=== PATIENT | female | born 1985 | race Two or more races ===

== ENCOUNTER 2016-04-22 05:43 | Emergency (ER) | payer OTHER ==
[~2016-04-22] VITALS: Ht 154.9 cm; Wt 52.0 kg
[2016-04-22 06:01] VITALS: Ht 154.9 cm; Wt 52.0 kg
--- NOTE | 2016-04-22 06:29 | ERD ---
ER Documentation Chief Complaint Date/Time DATE: 04/22/16 TIME: 06:26 Chief Complaint states possible spider bite to right wrist/ankle HPI 30 year old female comes in with right wrist "spider bite" she has had for 3 months, now on the right ankle, also comes in for vomiting and diarrhea x 2 days. No fever. She states it has been draining pus for several weeks now, this is her second evaluation. She states she had it drained previously when it first happened. ROS All systems reviewed and are negative except as per history of present illness. Medications Home Meds Active Scripts Hydrocodone/Acetaminophen ([place] 5-325 Tablet) 1 Each Tablet, 1 EACH PO Q6, #10 TAB Prov:KELLIE STERN PA-C 04/22/16 Bacitracin* (Bacitracin Zinc Oint*) 28.35 Gm Oint, 1 APPLIC TOP BID, #1 TUB APPLI TO Prov:KELLIE STERN PA-C 04/22/16 Sulfamethoxazole-Trimethoprim* (Bactrim* DS) 800-160 Mg Tab, 1 TAB PO BID for 7 Days, TAB Prov:KELLIE STERN PA-C 04/22/16 Cephalexin* (Keflex*) 500 Mg Capsule, 500 MG PO QID for 7 Days, CAP Prov:KELLIE STERN PA-C 04/22/16 Allergies Allergies: Coded Allergies: No Known Drug Allergies (Verified Allergy, Unknown, 04/22/16) Physical Exam Vitals Vital Signs Date Time Temp Pulse Resp B/P Pulse Ox O2 Delivery O2 Flow Rate FiO2 04/22/16 06:01 98.2 98 20 141/77 99 Physical Exam General: Well-developed, well-nourished. The patient appears in no acute distress. HEENT: Head is normocephalic, atraumatic. No scleral icterus. Neck: Supple. Nontender. Lungs: Clear to auscultation. Normal air movement. Heart: Regular rate and rhythm. S1 and S2 are normal. No murmurs, gallops, or rubs. Abdomen: Nondistended. Nontender, no tenderness to McBurney's point negative Truong sign. No peritoneal signs, guarding, hepatosplenomegaly Extremities: No clubbing or cyanosis. Moving extremities x 4. No weakness. Neurologic: Alert and oriented 3. No focal deficits. Normal speech and gait. Skin: cellulitis on right wrist, superficial, erythematous, 3 areas, one is 2 cm one is 1 cm and another 1 cm with pustular head no fluctuance, localized induration, no streaking. Radial pulses 2+ bilaterally. 2cm abscess on right medial ankle. Results 24 hrs Current Medications Medications (Trade) Dose Ordered Sig/Vanda Route PRN Reason Start Time Stop Time Status Last Admin Dose Admin Cephalexin (Keflex) 500 mg ONCE ONCE PO 04/22/16 06:30 04/22/16 06:31 DC 04/22/16 06:32 Trimethoprim/ Sulfamethoxazole (Bactrim (Ds)) 1 tab ONCE ONCE PO 04/22/16 06:30 04/22/16 06:31 DC 04/22/16 06:32 Bacitracin (Bacitracin Oint (Ud)) 1 applic ONCE ONCE TOP 04/22/16 06:30 04/22/16 06:31 DC 04/22/16 06:51 Lidocaine (Xylocaine 1% (Mdv) 20 ml) 20 ml ONCE ONCE SC 04/22/16 06:30 04/22/16 06:42 DC 04/22/16 06:32 Procedures/MDM ED course: Gentle pressure was applied, pulse was able to be drained, bacitracin was applied as well as a clean dressing. She was given Keflex and Bactrim. MDM: 30-year-old female comes in with multiple abscesses with cellulitis. Differentials include cellulitis, abscess, thrombophlebitis, insect bite, I do not see any limb threatening findings at this time. This patient is currently homeless, likely attributed to infection given the open wound from a benign bite. She will be treated with Keflex and Bactrim DS as well as topical bacitracin to be applied. Departure Diagnosis: Primary Impression: Abscess Condition: KELLIE Villafana PA-C Apr 22, 2016 06:29
[2016-04-22] MEDS ORDERED: BACITRACIN 0.9 GM OINT TOP ONE (06:30)
[2016-04-22] MEDS ORDERED: TRIMETHOPRIM/SULFAMETHOX (DS) TAB PO ONE (06:30)
[2016-04-22] MEDS ORDERED: LIDOCAINE 1% (MDV) 20 ML INJ SC ONE (06:30)
[2016-04-22] MEDS ORDERED: CEPHALEXIN 500 MG CAP PO ONE (06:30)
[2016-04-22] MEDS ORDERED: HYDR-906 PO (06:35)
[2016-04-22] MEDS ORDERED: BAC30OI TOP (06:35)
[2016-04-22] MEDS ORDERED: BACTDS PO (06:35)
[2016-04-22] MEDS ORDERED: CEPH-443 PO (06:35)
== END 2016-04-22 07:01 | disposition home or self-care (01) ==
LOC: FTE 05:43
DX: L02.413 Cutaneous abscess of right upper limb (principal); W57.XXXD Bitten or stung by nonvenomous insect and other nonvenomous arthropods, subsequent encounter
CPT/HCPCS: 99284

== ENCOUNTER 2017-02-06 12:15 | Inpatient (IN) | payer MEDICAID, OTHER ==
[~2017-02-06] VITALS: Ht 162.6 cm; Wt 61.5 kg
[~2017-02-06 12:15] MED LIST: BACI28.34 TOP; BACTDS PO; CEPH-443 PO; HYDR-906 PO
[2017-02-06 12:40] VITALS: Ht 162.6 cm; Wt 61.5 kg
[2017-02-06 12:41] VITALS: BP 129/85; PULSE 78
[2017-02-06 14:05] LABS: BASOPHILS % 0.4 % (0.0-2.0); EOSINOPHILS % 0.3 % (0.0-7.0); HEMATOCRIT 35.6 % (37.0-47.0); HEMOGLOBIN 11.8 g/dl (12.0-16.0); LYMPHOCYTES # 2.6 10^3/ul (0.8-2.9); MEAN CORPUSCULAR HGB CONC 33.1 g/dl (32.0-37.0); MEAN CORPUSCULAR VOLUME 87.5 fl (82.0-101.0); MEAN PLATELET VOLUME 11.6 fl (7.4-10.4); MONOCYTE # 0.6 10^3/ul (0.3-0.9); MONOCYTES % 5.6 % (0.0-11.0); NEUTROPHIL # 7.4 10^3/ul (1.6-7.5); NEUTROPHILS % 69.2 % (39.0-77.0); PLATELET COUNT 170 10^3/UL (140-415); RED BLOOD COUNT 4.07 10^6/ul (4.20-5.40); RED CELL DISTRIBUTION WIDTH 13.6 % (11.5-14.5); WHITE BLOOD COUNT 10.7 10^3/ul (4.8-10.8)
[2017-02-06 14:17] LABS: ADD UMIC YES; UR ASCORBIC ACID NEGATIVE (NEGATIVE); UR BACTERIA FEW /HPF (NONE SEEN); UR BILIRUBIN (Dip) NEGATIVE (NEGATIVE); UR BLOOD (Dip) 3+ mg/dL (NEGATIVE); UR CLARITY CLOUDY (CLEAR); UR COLOR AMBER (YELLOW); UR GLUCOSE (Dip) NEGATIVE (NEGATIVE); UR KETONES (Dip) NEGATIVE (NEGATIVE); UR LEUKOCYTE ESTERASE (Dip) TRACE Leu/ul (NEGATIVE); UR MUCUS MODERATE /HPF (NONE SEEN); UR NITRITE (Dip) NEGATIVE (NEGATIVE); UR NONSQUAMOUS EPITHELIAL CELL 1 /HPF (NONE SEEN); UR RBC > 182 /HPF (0-5); UR SPECIFIC GRAVITY (Dip) 1.021 (1.003-1.030); UR SQUAMOUS EPITHELIAL CELL FEW /HPF (FEW); UR TOTAL PROTEIN (Dip) 2+ mg/dl (NEGATIVE); UR UROBILINOGEN (Dip) 1+ mg/dL (NEGATIVE)
[2017-02-06 14:38] LABS: BARBITURATES Negative (NEGATIVE)
--- NOTE | 2017-02-06 14:43 | RADRPT ---
PROCEDURE: US OB biophysical profile. CLINICAL INDICATION: No care. Bleeding. TECHNIQUE: Multiple sonographic images of the pelvis were obtained. The images were reviewed on a PACS workstation. COMPARISON: None FINDINGS: There is a viable intrauterine gestation. There is a normal amount of amniotic fluid with an STELLA = 15.4 cm. Cardiac activity is present with 144 beats per minute. The placenta is anterior. No evidence of placenta previa or abruption. Biophysical profile: movement 2/2 tone 2/2. breathing 2/2 STELLA 2/2 Total 10/25 IMPRESSION: Normal biophysical profile. RPTAT:AAJJ Physician Shravan Date Time Electronically viewed and signed by Physician Shravan on 02/06/2017 14:42 /
--- NOTE | 2017-02-06 14:46 | RADRPT ---
PROCEDURE: US OB. CLINICAL INDICATION: No care. Evaluate size and dates TECHNIQUE: Multiple sonographic images of the pelvis were obtained. The images were reviewed on a PACS workstation. COMPARISON: Biophysical profile performed at the same time. FINDINGS: There is a single viable intrauterine gestation. Cardiac activity is present with 136 beats per min [place]. Measurements were made in order to determine age. The results are as follows: BPD =8.4 cm HC =30.8 cm AC =30.1 cm FL =6.4 cm. Estimated gestational age of approximately 33 weeks and 6 days. The estimated date of delivery is 03/21/2017. The EFW = 2276 g . Limited by positioning. Visualized structures are normal. The placenta is anterior. There is no evidence for an abruption or placenta previa. There is a normal amount of amniotic fluid with an STELLA = 15.4. IMPRESSION: Single viable intrauterine gestation of approximately 33 weeks and 6 days. RPTAT:AAJJ Physician Shravan Date Time Electronically viewed and signed by Physician Shravan on 02/06/2017 14:45 /
[2017-02-06 15:00] LABS: BENZODIAZEPINES Negative (NEGATIVE); CANNABINOIDS Negative (NEGATIVE); COCAINE Negative (NEGATIVE)
[2017-02-06] MEDS ORDERED: NIFEdipine 10 MG CAP PO ONE (15:00)
[2017-02-06] MEDS ORDERED: AMPICILLIN 2 GM/NS (PMX) 100 ML IV ONE (15:00)
[2017-02-06] MEDS ORDERED: BETAMET NA PHOS/AC(6 MG/ML) 5ML INJ IM SCH (15:00)
[2017-02-06 15:02] LABS: OPIATES Positive (NEGATIVE)
[2017-02-06] MEDS ORDERED: morphine 4 MG/ML VIAL IV PRN (16:30)
[2017-02-06] MEDS ORDERED: CITRIC ACID/SODIUM CITRATE 15 ML CUP ONE (16:48)
[2017-02-06] MEDS ORDERED: CITRIC ACID/SODIUM CITRATE 15 ML CUP PO PRN (17:00)
[2017-02-06] MEDS: LACTATED RINGER'S 1,000 ML IV SCH ×3 (17:01→17:41)
[2017-02-06] MEDS ORDERED: LACTATED RINGER'S 1,000 ML IV PRN (17:11)
[2017-02-06] MEDS ORDERED: CARBOPROST 250 MCG INJ IM PRN (17:30)
[2017-02-06] MEDS ORDERED: OXYTOCIN 30 UNITS/LR 500 ML IV SCH ×2 (17:30)
[2017-02-06] MEDS ORDERED: METHYLERGONOVINE 0.2 MG INJ IM PRN (17:30)
[2017-02-06] MEDS ORDERED: LIDOCAINE 1% (MPF) 30 ML INJ INJ PRN (17:30)
[2017-02-06] MEDS ORDERED: OXYTOCIN 30 UNITS/LR 500 ML IV PRN (17:30)
[2017-02-06] MEDS ORDERED: IBUPROFEN 600 MG TAB PO PRN (17:30)
[2017-02-06] MEDS ORDERED: MISOPROSTOL 200 MCG TAB PR PRN (17:30)
--- NOTE | 2017-02-06 17:30 | HP ---
Date/Time of Note Date/Time of Note DATE: 02/06/17 TIME: 17:28 OB - History Hx of Present Free Text/Dictation pt with no PNC and ho of drug abuse presents co of spotting and Ucx PMH non PSH non : 1 Para: 0 Care: None Ultrasounds: No ultrasounds Obstetrical Complications: Other Medical Complications: None Past Family/Social History * Past Medical, Surgical, Family and Obstetric Histories reviewed from chart. OB Admission Exam Vital Signs Vital Signs Vital Signs Date Time Temp Pulse Resp B/P Pulse Ox O2 Delivery O2 Flow Rate FiO2 02/06/17 12:41 98.4 78 129/85 Physical Exam HEENT: WNL Heart: Rhythm Normal Lungs: Clear Cervical Dilatation: 3cm Effacement: 75% Station: -1 Membranes: Intact Heart Rate: 140's Accelerations: Accelerations Present Last 72 hours Lab Results CBC & BMP 02/06/17 13:47 OB Assessment/Plan Reason for admission: labor Plan: Expectant Management Other plan: iup @ 33,6 based on US done today- pt with no care in the past PTL /-1 admit-BMS,ampicillin, procardia nicu consult and MFM consult if pt does not deliver admit labs MELISSA IBRAHIM MD Feb 06, 2017 17:30
[2017-02-06] MEDS ORDERED: FENTAnyl 2MCG/ML-ROPIV 0.2% 100 ML ONE (17:41)
[2017-02-06] MEDS ORDERED: FENTAnyl 2MCG/ML-ROPIV 0.2% 100 ML BAG EPI SCH (18:00)
[2017-02-06] MEDS ORDERED: ONDANSETRON 4 MG INJ IV PRN (18:00)
[2017-02-06] MEDS ORDERED: EPHEDrine SULFATE 50 MG/5 ML SYG IV PRN (18:00)
[2017-02-06] MEDS ORDERED: NALOXONE (0.4 MG/ML) INJ IV PRN (18:00)
[2017-02-06] MEDS: NIFEdipine 10 MG CAP PO SCH ×2 (18:00→21:56)
[2017-02-06] MEDS ORDERED: DIPHENHYDRAMINE 50 MG INJ IV PRN (18:00)
[2017-02-06 18:07] LABS: INR 0.91; PROTIME 12.2 Sec (12.2-14.2)
[2017-02-06 18:08] LABS: PARTIAL THROMBOPLASTIN TIME 24.9 Sec (25.0-35.0)
[2017-02-06] MEDS: AMPICILLIN 1 GM/NS (PMX) 50 ML IV SCH ×2 (19:00→21:56)
[2017-02-07] MEDS: LACTATED RINGER'S 1,000 ML IV SCH ×3 (00:01→20:37)
[2017-02-07] MEDS ORDERED: CEFAZOLIN 2 GM/50 ML (PMX) 50 ML IVPB ONE (01:30)
[2017-02-07] MEDS ORDERED: CEFAZOLIN 2 GM/50 ML (PMX) 50 ML IV SCH (01:30)
[2017-02-07] MEDS ORDERED: OXYTOCIN 10 UNIT INJ ONE (01:41)
[2017-02-07] MEDS ORDERED: ONDANSETRON 4 MG INJ ONE (01:41)
[2017-02-07] MEDS ORDERED: METOCLOPRAMIDE 10 MG INJ ONE (01:41)
[2017-02-07] MEDS ORDERED: morphine SULFATE/PF (10 MG/10 ML) INJ ONE (01:41)
[2017-02-07] MEDS ORDERED: OXYTOCIN 30 UNITS/LR 500 ML IV ONE (01:41)
[2017-02-07] MEDS ORDERED: EPHEDrine SULFATE 50 MG/5 ML SYG ONE (01:41)
[2017-02-07] MEDS ORDERED: MIDAZOLAM 1 MG/ML 2 ML INJ ONE (02:09)
[2017-02-07 02:48] LABS: CBV Base Excess -5.6 mmol/L; CBV COHb 0.6 %; CBV Oxygen Sat 34.7 mmHG; Fraction OxyHgb Cord Venous 33.8 %; MODE ROOM AIR; MetHgb Cord Venous 2.1 %; Sample Type Blood venous
[2017-02-07 02:50] LABS: AADO2 Cord Arterial 50.6 mmHg; Arterial Cord Blood pCO2 67.1 mmHG (25-50); CBA Base Excess -7.8 mmol/L; CBA Oxygen Sat 32.6 mmHG; CBA Total Hemglobin 12.7 g/dl; Cord Blood Arterial pO2 18.8 mmHG (15.0-45.0); Fraction OxyHgb Cord Arterial 31.7 %; MODE ROOM AIR; MetHgb Cord Arterial 2.1 %
[2017-02-07] MEDS ORDERED: OXYTOCIN 30 UNITS/LR 500 ML IV SCH (03:49)
[2017-02-07] MEDS ORDERED: DEXTROSE 5%-LR 1,000 ML IV SCH (03:49)
--- NOTE | 2017-02-07 03:49 | OPR ---
Operative Report Planned Procedure Free Text/Dictation 31 year-old, 1, with single intrauterine at 33 6/7 week base of yesterday's with no care, non reassuring heat rate and possible placental abruption Procedure date Feb 07, 2017 Procedure(s) Primary lower delivery Performed by see signature line Hand Cooper Helper Dr. Weber Anesthesiologist: YVETTE STERN MD Pre-procedure diagnosis Single intrauterine at 33 6/7 week base of yesterday's with no care, non reassuring heat rate and possible placental abruption Anesthesia Type: epidural Post-Procedure Post-procedure diagnosis Single intrauterine at 33 6/7 weeks with no care, non reassuring heat rate and placental abruption with couvelaire uterus Findings Live Baby [female], Apgars [7] and [9], weight [2270 gram], [cephalic] presentation [3]cord. Time of delivery: 02:01 Estimated Blood Loss: 500 - 600 mls Specimen(s) placenta Grafts/Implant(s) none Complication(s) none Pt Condition post procedure: stable Disposition: PACU Procedure Description INDICATION & HISTORY The patient is a 31 year-old, 1, with single intrauterine at 33 6/7 week base of yesterday's with no care, non reassuring heat rate and possible placental abruption. The risks of delivery including but not limited to bleeding, infection, injury to other organs (bowel , bladder, ureters, vessels, nerves), injury to the , blood transfusion, blood transfusion related infections, removal of uterus, risk of anesthesia, risks with future , repeat , adhesion/hernia formation discussed in detail with the patient. She voiced understanding and agreed with . She signed the informed consent. DESCRIPTION OF OPERATION: The patient was taken to the operating room, where she was identified and the procedure was verified. She received spinal anesthesia. The patient was placed in dorsal supine position with the left tilt. The heart rate was 124 per minute. The patient was then prepped and draped in the normal sterile fashion. The Pfannenstiel skin incision was made, and carried down to the fascia with the knife. The fascia was incised in the midline, and the fascial incision was carried laterally with the Llamas scissors. The superior portion of the fascial incision was then grasped with Waqar clamps, tented up and dissected off the underlying rectus muscle with sharp dissection. The lower portion of the fascial incision was then made in a similar fashion. The rectus muscle was and the peritoneum was entered. The peritoneal incision was then stretched and a bladder blade was inserted. Then, an incision was made in the lower uterine segment in a transverse fashion with the knife and extended bluntly. The was delivered atraumatically in cephalic presentation, with the above findings. The resuscitation team was present and the baby was handed to them. A cord blood sample was obtained for further evaluation. The placenta and membranes, which appeared normal were removed. The uterus was exteriorized and cleared of all clots and debris. As noted above there was a Couvelaire uterus. The uterus was then closed in a two layer fashion with 0 Vicryl. At the time of closure, hemostasis was noted. The gutters were irrigated. The peritoneum was reapproximated with 3-0 Vicryl. The muscle was reapproximated with 3-0 Vicryl. The fascia approximated with 0 Vicryl in a running fashion. The subcutaneous closed with 3/0 vicryl. The skin was closed with 4-0 Monocryl. All instrument, sponge, lap, and needle counts were correct x3. The patient tolerated the procedure well. She was transferred to the recovery room in stable condition. The patient received 2 g Ancef 30 minutes prior to surgery. REGINA STINSON Feb 07, 2017 03:49
[2017-02-07] MEDS ORDERED: MISOPROSTOL 200 MCG TAB PR PRN (04:00)
[2017-02-07] MEDS ORDERED: OXYTOCIN 30 UNITS/LR 500 ML IV PRN (04:00)
[2017-02-07] MEDS ORDERED: CARBOPROST 250 MCG INJ IM PRN (04:00)
[2017-02-07] MEDS ORDERED: METHYLERGONOVINE 0.2 MG INJ IM PRN (04:00)
[2017-02-07] MEDS ORDERED: LANOLIN 7 GM TUBE TOP PRN (04:00)
[2017-02-07] MEDS ORDERED: METHYLERGONOVINE 0.2 MG TAB PO PRN (04:00)
[2017-02-07 05:30] VITALS: BP 119/59; PULSE 88; RESP 18
[2017-02-07] MEDS: OXYCODONE/ACETAMINOPHEN (5/325) TAB PO SCH ×3 (05:45→20:00)
[2017-02-07] MEDS: IBUPROFEN 800 MG TAB PO SCH ×3 (05:45→22:00)
[2017-02-07 07:51] VITALS: BP 132/87; PULSE 70; RESP 14
[2017-02-07] MEDS ORDERED: NALBUPHINE HCL (10 MG/1 ML) INJ IV PRN (09:00)
[2017-02-07] MEDS ORDERED: NALOXONE (0.4 MG/ML) INJ IV PRN (09:00)
[2017-02-07] MEDS ORDERED: HYDROmorphONE 0.5 MG/0.5 ML SYG IV PRN ×2 (09:00)
[2017-02-07] MEDS ORDERED: DIPHENHYDRAMINE 50 MG INJ IV PRN (09:00)
[2017-02-07] MEDS ORDERED: ONDANSETRON 4 MG INJ IV PRN (09:00)
[2017-02-07] MEDS ORDERED: ZOLPIDEM 5 MG TAB PO PRN (09:00)
[2017-02-07] MEDS: KETOROLAC 30 MG INJ IV PRN ×3 (09:47→22:36)
[2017-02-07] MEDS: SENNA/DOCUSATE NA (8.6MG/50MG) TAB PO SCH ×2 (09:52→20:37)
[2017-02-07 13:09] VITALS: BP 120/67; PULSE 59; RESP 14
[2017-02-07 16:05] VITALS: BP 111/56; PULSE 70; RESP 18
[2017-02-07 19:58] VITALS: BP 103/60; PULSE 62; RESP 18
[2017-02-08] VITALS: BP 119/64; PULSE 52; RESP 18
[2017-02-08] MEDS: LACTATED RINGER'S 1,000 ML IV SCH ×2 (02:00→10:00)
[2017-02-08 04:00] VITALS: BP 118/80; PULSE 63; RESP 18
[2017-02-08] MEDS: OXYCODONE/ACETAMINOPHEN (5/325) TAB PO SCH ×3 (04:00→20:44)
[2017-02-08] MEDS: IBUPROFEN 800 MG TAB PO SCH ×3 (05:56→22:56)
[2017-02-08 08:00] VITALS: BP 135/82; PULSE 59; RESP 18
[2017-02-08] MEDS: OXYCODONE/ACETAMINOPHEN (5/325) TAB PO PRN ×2 (10:40→17:09)
[2017-02-08] MEDS: SENNA/DOCUSATE NA (8.6MG/50MG) TAB PO SCH ×2 (10:40→20:44)
--- NOTE | 2017-02-08 10:49 | PN ---
Date/Time of Note Date/Time of Note DATE: 02/08/17 TIME: 10:46 OB Subjective Subjective Subjective Status post , postoperative day #1 Patient passed flatus. Tolerated regular diet. Is not breast-feeding. Ambulated. Urinated. 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 Denies any IV drug use. Her U tox was positive for amphetamine. Baby currently NICU. OB Objective Objective Objective General appearance: Alert and oriented 4. Patient does not appear to be in any acute distress. Abdomen: Soft, fundus at the level about 2-3 cm below the umbilicus and firm. Incision: Clean dry and intact Extremities: No calf tenderness, no click no edema Lungs: Clear to auscultation bilaterally CV: RRR Breast: No evidence of engorgement or mastitis or tenderness Hematology - 72 Hrs Test 02/06/17 13:47 White Blood Count 10.710^3/ul (4.8-10.8) Red Blood Count 4.0710^6/ul (4.20-5.40) L Hemoglobin 11.8g/dl (12.0-16.0) L Hematocrit 35.6% (37.0-47.0) L Mean Corpuscular Volume 87.5fl (82.0-101.0) Mean Corpuscular Hemoglobin 29.0pg (29.0-33.0) Mean Corpuscular Hemoglobin Concent 33.1g/dl (32.0-37.0) Red Cell Distribution Width 13.6% (11.5-14.5) Platelet Count 01499^3/UL (140-415) Mean Platelet Volume 11.6fl (7.4-10.4) H Neutrophils % 69.2% (39.0-77.0) Lymphocytes % 24.0% (15.0-51.0) Monocytes % 5.6% (0.0-11.0) Eosinophils % 0.3% (0.0-7.0) Basophils % 0.4% (0.0-2.0) Nucleated Red Blood Cells % 0.0/100WBC (0.0-0.0) Neutrophils # 7.410^3/ul (1.6-7.5) Lymphocytes # 2.610^3/ul (0.8-2.9) Monocytes # 0.610^3/ul (0.3-0.9) Eosinophils # 0.010^3/ul (0.0-0.5) Basophils # 0.010^3/ul (0.0-0.1) Nucleated Red Blood Cells # 0.010^3/ul (0.0-0.0) OB Assessment/Plan Other Assessment: Postoperative day #1 Status post emergency section at 33 weeks and 6 days for nonreassuring heart tracing and placenta abruption No complication or postoperatively Doing well baby is in NICU received partial dose of steroid. 1 dose of steroid prior to C -section only, Mother denies any history of IV drug usage. Reports has been using heroin and methamphetamine by smoking, but denies using on a regular basis Cannot breast-feed due to drug usage and positive urine drug screen. Positive for methamphetamine Advised the patient to have a tight bra and cold compress Continue routine postop care CYN LEMA MD Feb 08, 2017 10:49
[2017-02-08 15:56] VITALS: BP_SYST 130; BP_SYST 135; BP_DIAS 80; PULSE 61; RESP 18
[2017-02-08 20:00] VITALS: BP 142/88; PULSE 74; RESP 18
[2017-02-09] MEDS: OXYCODONE/ACETAMINOPHEN (5/325) TAB PO PRN ×2 (01:44→15:11)
[2017-02-09] MEDS: OXYCODONE/ACETAMINOPHEN (5/325) TAB PO SCH ×5 (04:00→21:15)
[2017-02-09 04:45] VITALS: BP 130/63; PULSE 69; RESP 18
[2017-02-09] MEDS: IBUPROFEN 800 MG TAB PO SCH ×3 (06:06→22:18)
[2017-02-09 08:34] VITALS: BP 129/85; PULSE 59; RESP 18
[2017-02-09] MEDS: SENNA/DOCUSATE NA (8.6MG/50MG) TAB PO SCH ×2 (09:19→21:16)
--- NOTE | 2017-02-09 11:48 | PN ---
Date/Time of Note Date/Time of Note DATE: 02/09/17 TIME: 11:45 OB Subjective Subjective Subjective Post C section day 2 Doing fairly Well Afebrile Ambulatory Chest Clear Breasts are soft , Nipples are intact Abdomen is soft Fundus is firm Moderate amount of lochia Incision is clean ,No evidence of infection No calf tenderness Current Medications Medications (Trade) Dose Ordered Sig/Vanda Route PRN Reason Start Time Stop Time Status Last Admin Dose Admin Lactated Ringer's (Lr) 1,000 ml @ 125 mls/hr Q8H IV 02/06/17 14:48 02/07/17 05:40 DC 02/06/17 17:41 Nifedipine (Procardia) 20 mg ONCE ONCE PO 02/06/17 15:00 02/06/17 15:02 DC 02/06/17 16:08 Nifedipine (Procardia) 20 mg Q6 PO 02/06/17 18:00 02/06/17 22:55 DC 02/06/17 21:56 Betamethasone Acet/Betameth SodPhos 12 mg 12 mg Q24H IM 02/06/17 15:00 02/06/17 22:55 DC 02/06/17 16:15 Ampicillin 100 ml @ 100 mls/hr ONCE ONCE IV 02/06/17 15:00 02/06/17 22:55 DC 02/06/17 17:06 Ampicillin (Ampicillin 1 Gm/ NS (Pmx)) 50 ml @ 100 mls/hr Q4H IV 02/06/17 19:00 02/07/17 02:55 DC 02/06/17 21:56 Morphine Sulfate (morphine) 4 mg PRN PRN IV PAIN 02/06/17 16:30 02/07/17 05:40 DC 02/06/17 16:20 Citric Acid/ Sodium Citrate (Bicitra) 30 ml PRN PRN PO HEARTBURN 02/06/17 17:00 02/07/17 05:40 DC 02/06/17 17:02 Citric Acid/ Sodium Citrate 15 ml 15 ml STK-MED ONCE .ROUTE 02/06/17 16:48 02/06/17 16:49 DC Lactated Ringer's (Lr) 1,000 ml @ 125 mls/hr Q8H IV 02/06/17 17:09 02/07/17 05:40 DC 02/07/17 00:01 Lidocaine 30 ml 30 ml ONCE PRN INJ EPISIOTOMY/TEARING 02/06/17 17:30 02/07/17 05:40 DC Oxytocin/Lactated Ringer's 500 ml @ 125 mls/hr ONCE -MAY REPEAT X1 IV 02/06/17 17:30 02/07/17 05:40 DC Oxytocin/Lactated Ringer's 500 ml @ 125 mls/hr ONCE IV 02/06/17 17:30 02/07/17 05:40 DC 02/07/17 04:56 Ibuprofen 600 mg 600 mg ONCE PRN PO Mild Pain (Pain Score 1-3) 02/06/17 17:30 02/07/17 05:40 DC Lactated Ringer's 1,000 ml @ 2,000 mls/hr Q30M PRN IV PRE-EPIDURAL BOLUS 02/06/17 17:11 02/07/17 05:40 DC Oxytocin/Lactated Ringer's 500 ml @ 0 mls/hr ONCE PRN IV For Hemorrhage Management 02/06/17 17:30 02/07/17 05:40 DC Methylergonovine Maleate (Methergine) 0.2 mg ONCE PRN IM VAGINAL BLEEDING 02/06/17 17:30 02/07/17 05:40 DC Carboprost Tromethamine (Hemabate) 250 mcg ONCE PRN IM VAGINAL BLEEDING 02/06/17 17:30 02/07/17 04:06 DC Misoprostol (Cytotec) 1,000 mcg ONCE PRN [place] VAGINAL BLEEDING 02/06/17 17:30 02/07/17 05:40 DC 02/07/17 04:47 Naloxone HCl (Narcan) 0.1 mg Q2M PRN IV FOR RESP RATE 8 OR LESS 02/06/17 18:00 02/07/17 05:40 DC Diphenhydramine HCl (Benadryl) 25 mg Q6H PRN IV ITCHING 02/06/17 18:00 02/07/17 17:59 DC Ondansetron HCl (Zofran Inj) 4 mg Q6H PRN IV NAUSEA AND/OR VOMITING 02/06/17 18:00 02/07/17 17:59 DC Fentanyl/ Ropivacaine 100 ml EPIDURAL INFUSION EPI 02/06/17 18:00 02/07/17 05:40 DC Ephedrine Sulfate 5 mg 5 mg PRN PRN IV BLOOD PRESSURE SUPPORT 02/06/17 18:00 02/07/17 05:40 DC Fentanyl/ Ropivacaine 100 ml @ ud STK-MED ONCE .ROUTE 02/06/17 17:41 02/06/17 17:42 DC Cefazolin Sodium/ Dextrose (Ancef 2 Gm/50 ml (Pmx)) 50 ml @ ud STK-MED ONCE IVPB 02/07/17 01:30 02/07/17 01:31 DC Ephedrine Sulfate 50 mg 50 mg STK-MED ONCE .ROUTE 02/07/17 01:41 02/07/17 01:42 DC Oxytocin/Lactated Ringer's 500 ml @ ud STK-MED ONCE IV 02/07/17 01:41 02/07/17 01:42 DC Ondansetron HCl (Zofran Inj) 4 mg STK-MED ONCE .ROUTE 02/07/17 01:41 02/07/17 01:42 DC Metoclopramide HCl (Reglan) 10 mg STK-MED ONCE .ROUTE 02/07/17 01:41 02/07/17 01:42 DC Oxytocin (Oxytocin) 10 units STK-MED ONCE .ROUTE 02/07/17 01:41 02/07/17 01:42 DC Morphine Sulfate (Duramorph) 10 mg STK-MED ONCE .ROUTE 02/07/17 01:41 02/07/17 01:42 DC Midazolam HCl 2 mg 2 mg STK-MED ONCE .ROUTE 02/07/17 02:09 02/07/17 02:10 DC Dextrose/Lactated Ringer's 1,000 ml @ 125 mls/hr Q8H IV 02/07/17 03:49 02/07/17 05:40 DC Oxytocin/Lactated Ringer's 500 ml @ 125 mls/hr Q4H IV 02/07/17 03:49 02/07/17 05:40 DC Methylergonovine Maleate (Methergine) 0.2 mg Q6H PRN PO VAGINAL BLEEDING 02/07/17 04:00 02/07/17 05:40 DC Simethicone (Mylicon) 160 mg Q8H PRN PO DISTENSION/GAS/BLOATING 02/07/17 04:00 Senna/Docusate Sodium (Senokot-S) 1 tab BID PO 02/07/17 09:00 02/09/17 09:19 Lanolin (Gck-N-Qmqrjn) 1 applic BEDSIDE MEDICATION PRN TOP BEDSIDE FOR THA TO NIPPLES 02/07/17 04:00 Diphtheria/ Tetanus/Acell Pertussis (Adacel) 0.5 ml ONCE ONCE IM* 02/10/17 09:00 02/10/17 09:01 Measles/Mumps/ Rubella Vaccine Live 0.5 ml 0.5 ml ONCE ONCE SC* 02/10/17 09:00 02/10/17 09:01 Oxytocin/Lactated Ringer's 500 ml @ 0 mls/hr ONCE PRN IV For Hemorrhage Management 02/07/17 04:00 02/07/17 05:40 DC Methylergonovine Maleate (Methergine) 0.2 mg ONCE PRN IM VAGINAL BLEEDING 02/07/17 04:00 Carboprost Tromethamine (Hemabate) 250 mcg ONCE PRN IM VAGINAL BLEEDING 02/07/17 04:00 Misoprostol (Cytotec) 1,000 mcg ONCE PRN [place] VAGINAL BLEEDING 02/07/17 04:00 Ibuprofen (Motrin) 800 mg Q8 PO 02/07/17 06:00 02/09/17 06:06 Oxycodone/ Acetaminophen (Percocet (5/ 325)) 1 tab Q8H PO 02/07/17 04:00 02/09/17 04:45 Oxycodone/ Acetaminophen 1 tab 1 tab Q4H PRN PO PAIN 02/07/17 04:00 02/09/17 01:44 Cefazolin Sodium/ Dextrose (Ancef 2 Gm/50 ml (Pmx)) 50 ml @ 100 mls/hr ONCE IV 02/07/17 01:30 02/07/17 05:40 DC Naloxone HCl (Narcan) 0.1 mg Q2M PRN IV FOR RESP RATE 8 OR LESS 02/07/17 09:00 02/08/17 08:59 DC Ketorolac Tromethamine (Toradol) 30 mg Q6H PRN IV PAIN 02/07/17 09:00 02/08/17 08:59 DC 02/07/17 22:36 Hydromorphone HCl (Dilaudid) 0.2 mg Q3H PRN IV PAIN LEVEL 1-5 02/07/17 09:00 02/08/17 08:59 DC Hydromorphone HCl (Dilaudid) 0.4 mg Q3H PRN IV PAIN LEVEL 6-10 02/07/17 09:00 02/08/17 08:59 DC 02/07/17 21:29 Diphenhydramine HCl (Benadryl) 25 mg Q6H PRN IV ITCHING 02/07/17 09:00 02/08/17 08:59 DC Nalbuphine HCl (Nubain) 5 mg ONCE PRN IV ITCHING 02/07/17 09:00 02/08/17 08:59 DC Ondansetron HCl (Zofran Inj) 4 mg Q6H PRN IV NAUSEA AND/OR VOMITING 02/07/17 09:00 02/08/17 08:59 DC Zolpidem Tartrate 5 mg 5 mg HS MAY REPEAT X 1 PRN PO INSOMNIA 02/07/17 09:00 02/08/17 08:59 DC Lactated Ringer's (Lr) 1,000 ml @ 125 mls/hr Q8H IV 02/07/17 10:00 02/08/17 16:04 DC 02/07/17 20:37 No ankle edema New born is in ICU due to prematurity and maternal drug addiction . MARCELO PIERRE MD Feb 09, 2017 11:48
[2017-02-09 12:23] VITALS: BP 140/82; PULSE 68; RESP 17
[2017-02-09 16:00] VITALS: BP 133/80; PULSE 71; RESP 19
[2017-02-09 20:00] VITALS: BP 113/72; PULSE 72; RESP 20
[2017-02-10] MEDS: OXYCODONE/ACETAMINOPHEN (5/325) TAB PO PRN ×2 (04:36→08:12)
[2017-02-10 05:30] VITALS: BP 114/65; PULSE 68; RESP 21
[2017-02-10] MEDS: IBUPROFEN 800 MG TAB PO SCH ×2 (05:49→13:57)
[2017-02-10 08:00] VITALS: BP 123/73; PULSE 70; RESP 18
[2017-02-10] MEDS: SENNA/DOCUSATE NA (8.6MG/50MG) TAB PO SCH (08:12)
--- NOTE | 2017-02-10 08:49 | QN ---
Documentation Comment POD#3 is stable afebrile tolerates diet No VB +BM +Voids VS stable Gen NAD Abd soft,NT ND incision intact Genitalia No blood at perinium --->discharge Home when clear from Social service NESTOR DEL TORO M.D. Feb 10, 2017 08:49
--- NOTE | 2017-02-10 08:51 | DS ---
Date/Time of Note Date/Time of Note DATE: 02/10/17 TIME: 08:51 Discharge Summary Admission/Discharge Info Admit Date/Time Feb 06, 2017 at 14:50 Discharge Date/Time Jan Discharge Diagnosis Patient Condition: Good Procedures c/section Hospital Course uneventful Home Meds Active Scripts Hydrocodone/Acetaminophen ([place] 5-325 Tablet) 1 Each Tablet, 1 EACH PO Q6, #10 TAB Prov:EKLLIE STERN PA-C 04/22/16 Bacitracin* (Bacitracin Zinc Oint*) 28.35 Gm Oint, 1 APPLIC TOP BID, #1 TUB APPLI TO Prov:KELLIE STERN PA-C 04/22/16 Sulfamethoxazole-Trimethoprim* (Bactrim* DS) 800-160 Mg Tab, 1 TAB PO BID for 7 Days, TAB Prov:KELLIE STERN PA-C 04/22/16 Cephalexin* (Keflex*) 500 Mg Capsule, 500 MG PO QID for 7 Days, CAP Prov:KELLIE STERN PA-C 04/22/16 Primary Care Provider Care Physician No NESTOR Hall M.D. Feb 10, 2017 08:51
[2017-02-10] MEDS ORDERED: MEASLES,MUMPS,RUBELLA VACCINE INJ SC* ONE (09:00)
[2017-02-10] MEDS ORDERED: DIPHTH/TET/ACEL PERTUSS (ADULT) 0.5 ML VIAL IM* ONE (09:00)
[2017-02-10] MEDS: OXYCODONE/ACETAMINOPHEN (5/325) TAB PO SCH (12:16)
== END 2017-02-10 14:19 | disposition home or self-care (01) | DRG 765 ==
LOC: OBT 12:15 → L-D 12:16 → OBT 14:50 → L-D 14:50 → PP1 02-07 05:17
PROC: 10D00Z1 Extraction of Products of Conception, Low, Open Approach (ICD-10-PCS; principal; 2017-02-06)
DX: O62.9 Abnormality of forces of labor, unspecified (principal); O45.93 Premature separation of placenta, unspecified, third trimester; O99.324 Drug use complicating childbirth; O76 Abnormality in fetal heart rate and rhythm complicating labor and delivery; Z3A.33 33 weeks gestation of pregnancy; Z37.0 Single live birth; O09.33 Supervision of pregnancy with insufficient antenatal care, third trimester
CPT/HCPCS: 36415; 36600; 62319; 76815; 76818; 80307; 81001; 82803; 85025; 85610; 85730; 86592; 86703; 86762; 86850; 86900; 86901; 87340; 88307; 90715; 94760; 99464; G0463; J0290; J0690; J0702; J1170; J1885; J2250; J2270; J2274; J2405; J2590; J2765; J3010; J7120; J7121